=== PATIENT | male | born 1960 | race Two or more races ===

== ENCOUNTER 2018-12-22 13:39 | Emergency (ER) | payer OTHER ==
[~2018-12-22] VITALS: Ht 167.6 cm; Wt 111.4 kg
[2018-12-22] MEDS ORDERED: SENN-83 (15:22)
[2018-12-22] MEDS ORDERED: ATOR80TA59 (15:22)
[2018-12-22] MEDS ORDERED: SENN1TAB36 (15:22)
[2018-12-22] MEDS ORDERED: PEG1POW (15:22)
[2018-12-22] MEDS ORDERED: LISI-538 (15:22)
[2018-12-22] MEDS ORDERED: TIZA2TA (15:22)
[2018-12-22] MEDS ORDERED: DOXA1TAB49 (15:22)
[2018-12-22] MEDS ORDERED: TAMS1CAP17 (15:22)
[2018-12-22] MEDS ORDERED: LEVE500T5 (15:22)
[2018-12-22] MEDS ORDERED: ASPI81TA26 (15:22)
[2018-12-22] MEDS ORDERED: FINA5TAB2 (15:22)
[2018-12-22] MEDS ORDERED: AMLO10TA5 (15:22)
[2018-12-22] MEDS ORDERED: PREP1CRE TOP (15:43)
[2018-12-22] MEDS ORDERED: COLA100C5 PO (15:43)
[2018-12-22] MEDS ORDERED: FLON1SPR NARES (15:43)
[2018-12-22 16:17] VITALS: BP 140/77
== END 2018-12-22 16:57 | disposition home or self-care (01) ==
LOC: M ED 13:39
DX: K64.9 Unspecified hemorrhoids (principal); J02.9 Acute pharyngitis, unspecified; I10 Essential (primary) hypertension; G40.909 Epilepsy, unspecified, not intractable, without status epilepticus; Z79.899 Other long term (current) drug therapy; Z79.82 Long term (current) use of aspirin

== ENCOUNTER → 2019-04-24 | Outpatient (CLI) | payer OTHER ==
[~2019-04-24] MED LIST: AMLO10TA5; ASPI81TA26; ATOR80TA59; COLA100C5 PO; DOXA1TAB49; FINA5TAB2; FLON1SPR NARES; LEVE500T5; LISI-538; PEG1POW; PREP1CRE TOP; SENN-83; SENN1TAB36; TAMS1CAP17; TIZA2TA
== END ==
LOC: M LAB 16:20
PROVIDERS: ATTEND Physician Assistant Medical
DX: G40.89 Other seizures (principal)

== ENCOUNTER 2025-01-28 12:56 | Inpatient (IN) | payer OTHER, SELFPAY ==
[~2025-01-28] VITALS: Ht 182.9 cm; Wt 103.0 kg
[~2025-01-28 12:56] MED LIST changes: -AMLO10TA5; +AMLO1TAB25 PO; -ASPI81TA26; +ASPI81TA26 PO; -ATOR80TA59; +ATOR80TA59 PO; -DOXA1TAB49; +DOXA1TAB49 PO; +HYDR26CR TOP; -LEVE500T5; +LEVE500T5 PO; -LISI-538; +LISI20TA33; -PEG1POW; +POLY17PO18; -PREP1CRE TOP; +SENN-187; -SENN-83; -TAMS1CAP17; +TAMS1CAP17 PO; -TIZA2TA; +TIZA2TA PO
[2025-01-28] MEDS ORDERED: ISOVUE-370 76% 100 ML VIAL As Ordered ONE (13:15)
[2025-01-28 13:28] LABS: BASO # 0.0 10^3/uL (0.0-0.2); BASO % 0.3 % (0.0-1.0); EOS # 0.1 10^3/uL (0.0-0.5); EOS % 1.0 % (0.0-3.0); LYMPH # 2.8 10^3/uL (1.5-5.0); LYMPH % 38.0 % (24.0-44.0); MONO # 0.6 10^3/uL (0.0-0.8); MONO % 8.4 % (2.0-8.0); NEUTROPHILS # 3.8 10^3/uL (1.5-8.5); NEUTROPHILS % 52.0 % (36.0-66.0); PLATELET COUNT, AUTOMATED 267 10^3/uL (150-450)
[2025-01-28 13:50] LABS: INR 0.97
[2025-01-28 13:50] LABS: CK-MB VALUE MASS < 1.0 NG/ML (<3.6)
[2025-01-28 13:51] LABS: ALT/SGPT 29 U/L (7.0-40); AST/SGOT 19 U/L (<34); CALCIUM LEVEL 8.9 MG/DL (8.3-10.6); CARBON DIOXIDE LEVEL 26 MMOL/L (20-31); CHLORIDE LEVEL 104 MMOL/L (98-107); CREATININE FOR GFR 0.95 MG/DL (0.70-1.30); GLOMERULAR FILTRATION RATE 88.3 (>49); POTASSIUM SERUM 4.2 MMOL/L (3.5-5.1); SODIUM LEVEL 140 MMOL/L (136-145)
[2025-01-28 13:54] LABS: CPK CREATINE PHOSPHOKINASE 75 U/L (46-171)
[2025-01-28 14:53] LABS: CK-MB VALUE MASS < 1.0 NG/ML (<3.6)
[2025-01-28 14:54] LABS: CPK CREATINE PHOSPHOKINASE 64 U/L (46-171)
[2025-01-28] MEDS ORDERED: CARV3.12 PO (15:50)
[2025-01-28] MEDS ORDERED: CARB-19 PO (15:50)
[2025-01-28] MEDS ORDERED: METF750T36 PO (15:50)
[2025-01-28] MEDS ORDERED: TRUL10IN INJ (15:50)
[2025-01-28] MEDS ORDERED: LISI30TA4 PO (15:50)
[2025-01-28] MEDS ORDERED: HOME MED LIST COMPLETE! XX SCH (15:55)
[2025-01-28] MEDS ORDERED: ACETAMINOPHEN 325 MG TAB PO PRN (17:05)
[2025-01-28] MEDS ORDERED: GLUCAGON INJ 1 MG VIAL SC PRN (18:05)
[2025-01-28] MEDS ORDERED: GLUCOSE 4 GM CHEW PO PRN (18:05)
[2025-01-28] MEDS ORDERED: DEXTROSE 50% 50 ML SYRINGE IV PRN (18:05)
[2025-01-28] MEDS: CLOPIDOGREL 75 MG TAB PO ONE (18:20)
[2025-01-28] MEDS: INSULIN LISPRO (NovoLOG) PER UNIT SC SCH ×2 (18:24→20:56)
[2025-01-28] MEDS: SENNOSIDES/DOCUSATE SODIUM 8.6 MG/50MG TAB PO SCH (21:00)
[2025-01-29 02:36] VITALS: BP 166/83; TEMP 97.6; O2SAT 95
[2025-01-29 05:35] LABS: BASO # 0.0 10^3/uL (0.0-0.2); BASO % 0.2 % (0.0-1.0); EOS # 0.1 10^3/uL (0.0-0.5); EOS % 0.7 % (0.0-3.0); LYMPH # 3.0 10^3/uL (1.5-5.0); LYMPH % 30.4 % (24.0-44.0); MONO # 0.5 10^3/uL (0.0-0.8); MONO % 4.8 % (2.0-8.0); NEUTROPHILS # 6.3 10^3/uL (1.5-8.5); NEUTROPHILS % 63.7 % (36.0-66.0); PLATELET COUNT, AUTOMATED 265 10^3/uL (150-450)
[2025-01-29 06:04] LABS: CALCIUM LEVEL 8.4 MG/DL (8.3-10.6); CARBON DIOXIDE LEVEL 27 MMOL/L (20-31); CHLORIDE LEVEL 101 MMOL/L (98-107); CREATININE FOR GFR 0.81 MG/DL (0.70-1.30); GLOMERULAR FILTRATION RATE > 90.0 (>49); POTASSIUM SERUM 4.2 MMOL/L (3.5-5.1); SODIUM LEVEL 138 MMOL/L (136-145)
[2025-01-29 07:20] VITALS: BP 153/72; TEMP 97.8; O2SAT 98
[2025-01-29 07:50] LABS: CHOLESTEROL LEVEL 136 MG/DL (<200); CHOLESTEROL RISK RATIO 3.60 (<5); LDL CHOLESTEROL 80.5 MG/DL (<100); NON-HDL-C 98.3 MG/DL; TRIGLYCERIDES LEVEL 89 MG/DL (<150)
[2025-01-29] MEDS: ENOXAPARIN 40 MG/0.4 ML SYRINGE (J1650 PER 10MG) SC SCH (08:14)
[2025-01-29] MEDS: ASPIRIN 81 MG ENTERIC TABLET PO SCH (08:17)
[2025-01-29] MEDS: ATORVASTATIN 20 MG TAB PO SCH (08:18)
[2025-01-29] MEDS: TAMSULOSIN 0.4 MG CAP PO SCH (08:19)
[2025-01-29] MEDS: amLODIPine 5 MG TAB PO SCH (08:20)
[2025-01-29] MEDS: CLOPIDOGREL 75 MG TAB PO SCH (08:20)
[2025-01-29 11:57] VITALS: BP 147/87; TEMP 98.1; O2SAT 100
[2025-01-29] MEDS ORDERED: E-Z-PAQUE 96% w/w SUSP 176 GM BTL As Ordered ONE (13:52)
[2025-01-29] MEDS ORDERED: BARIUM SULFATE 700 MG TABLET As Ordered ONE (13:52)
[2025-01-29] MEDS ORDERED: VARIBAR PUDDING 40% w/v 230ML TUBE As Ordered ONE (13:53)
[2025-01-29] MEDS ORDERED: VARIBAR NECTAR 40% w/v 240ML SUSP BTL As Ordered ONE (13:53)
[2025-01-29 17:52] VITALS: BP 162/84; TEMP 97.5; O2SAT 98
[2025-01-29 20:08] VITALS: BP_SYST 112; BP_SYST 155; BP_DIAS 67; BP_DIAS 88; TEMP 97.3; O2SAT 99
[2025-01-30 00:08] VITALS: BP 142/67; TEMP 97.9; O2SAT 100
[2025-01-30 04:32] VITALS: BP 155/59; TEMP 97.9; O2SAT 97
[2025-01-30 05:30] LABS: BASO # 0.0 10^3/uL (0.0-0.2); BASO % 0.2 % (0.0-1.0); EOS # 0.1 10^3/uL (0.0-0.5); EOS % 1.2 % (0.0-3.0); LYMPH # 3.2 10^3/uL (1.5-5.0); LYMPH % 35.7 % (24.0-44.0); MONO # 0.5 10^3/uL (0.0-0.8); MONO % 5.7 % (2.0-8.0); NEUTROPHILS # 5.1 10^3/uL (1.5-8.5); NEUTROPHILS % 56.9 % (36.0-66.0); PLATELET COUNT, AUTOMATED 264 10^3/uL (150-450)
[2025-01-30 05:52] LABS: CALCIUM LEVEL 8.3 MG/DL (8.3-10.6); CARBON DIOXIDE LEVEL 27 MMOL/L (20-31); CHLORIDE LEVEL 103 MMOL/L (98-107); CREATININE FOR GFR 0.81 MG/DL (0.70-1.30); GLOMERULAR FILTRATION RATE > 90.0 (>49); POTASSIUM SERUM 4.1 MMOL/L (3.5-5.1); SODIUM LEVEL 139 MMOL/L (136-145)
[2025-01-30 08:03] VITALS: BP 154/94; TEMP 97.7; O2SAT 91
[2025-01-30 09:03] VITALS: BP 154/94
[2025-01-30] MEDS ORDERED: METF750T36 PO (11:01)
[2025-01-30] MEDS ORDERED: ATOR80TA59 PO (11:01)
[2025-01-30] MEDS ORDERED: CLOP75TA2 PO (11:01)
[2025-01-30] MEDS ORDERED: AMLO1TAB25 PO (11:01)
[2025-01-30] MEDS: FLUZONE HIGH DOSE (65+) 0.5 ML SYRINGE (25-26) IM.IMMUN ONE (13:03)
[2025-01-30] MEDS: PNEUMOC 21-VAL CONJ-DIP CRM/PF 0.5 ML SYRINGE IM.IMMUN ONE (13:04)
[2025-01-30 13:08] VITALS: BP 154/80; TEMP 97.6; O2SAT 99
== END 2025-01-30 14:24 | disposition home or self-care (01) | DRG 45 ==
LOC: M ED 12:56 → M ED INP 17:02 → M PCU 01-29 02:26
PROVIDERS: ADMIT Internal Medicine Nephrology; ATTEND Internal Medicine Nephrology
PROC: B246ZZZ Ultrasonography of Right and Left Heart (ICD-10-PCS; principal; 2025-01-29)
DX: I63.9 Cerebral infarction, unspecified (principal); G81.94 Hemiplegia, unspecified affecting left nondominant side; I10 Essential (primary) hypertension; R13.10 Dysphagia, unspecified; E78.5 Hyperlipidemia, unspecified; E11.9 Type 2 diabetes mellitus without complications; R53.1 Weakness; R47.81 Slurred speech; R29.810 Facial weakness; R26.89 Other abnormalities of gait and mobility; N40.0 Benign prostatic hyperplasia without lower urinary tract symptoms; G40.909 Epilepsy, unspecified, not intractable, without status epilepticus; Z87.891 Personal history of nicotine dependence; Z79.82 Long term (current) use of aspirin; Z79.84 Long term (current) use of oral hypoglycemic drugs; Z79.899 Other long term (current) drug therapy